=== PATIENT | female | born 1950 | race Caucasian/White ===

== ENCOUNTER 2016-05-21 09:20 | Day surgery (SDC) | payer MEDICARE ==
[2016-05-21] MEDS ORDERED: LACTATED RINGERS 1,000 ML IV ONE (09:40)
[2016-05-21] MEDS ORDERED: fentaNYL 250 MCG/5 ML VIAL IVP ONE (11:17)
[2016-05-21] MEDS ORDERED: MIDAZOLAM 2 MG/2 ML VIAL IVP ONE (11:17)
== END 2016-05-21 09:21 | disposition home or self-care (01) ==
PROC: 0DBL8ZX Excision of Transverse Colon, Via Natural or Artificial Opening Endoscopic, Diagnostic (ICD-10-PCS; 2016-05-21)
PROC: 0DBH8ZX Excision of Cecum, Via Natural or Artificial Opening Endoscopic, Diagnostic (ICD-10-PCS; principal; 2016-05-21 10:15)
DX: Z12.11 Encounter for screening for malignant neoplasm of colon (principal); D12.0 Benign neoplasm of cecum; D12.3 Benign neoplasm of transverse colon; I10 Essential (primary) hypertension; Z87.891 Personal history of nicotine dependence; Q27.33 Arteriovenous malformation of digestive system vessel; K57.30 Diverticulosis of large intestine without perforation or abscess without bleeding
CPT/HCPCS: 45380; 45384; J3010; J7120

== ENCOUNTER 2016-12-02 10:27 | Outpatient (CLI) | payer MEDICARE ==
--- NOTE | 2016-12-03 15:07 | Mammography Report ---
DIGITAL SCREENING MAMMOGRAM: 12/02/2016 CLINICAL INDICATION: A 66-year-old with history of late childbearing, personal history of left breas t cancer status post lumpectomy and chemoradiation. COMPARISON: 09/2015, 11/2013, 01/2011, 04/2008, 04/2007. TECHNIQUE: Routine CC and MLO projections were obtained of the breasts. FINDINGS: The breasts again demonstrate scattered fibroglandular densities bilaterally. Postoperati ve and posttreatment changes in the left breast are stable. Coarse, typically benign calcifications are present. No suspicious masses, clustered microcalcifications, or regions of architectural distor tion are identified. IMPRESSION: BENIGN FINDINGS. RECOMMENDATION: Routine annual screening unless otherwise clinically indicated. BI-RADS category 2, benign findings. STANDARD QUALIFYING STATEMENTS 1. This examination was reviewed with the aid of Computer-Aided Detection (CAD). 2. A negative or benign imaging report should not delay biopsy if clinically suspicious findings are present. Consider surgical consultation if warranted. More than 5% of cancers are not identified by i maging. 3. Dense breasts may obscure an underlying neoplasm. JOB #: [id number] EXT JOB #:[id number]
== END 2016-12-02 10:28 | disposition home or self-care (01) ==
LOC: DI 10:27
PROVIDERS: ATTEND Internal Medicine
DX: Z12.31 Encounter for screening mammogram for malignant neoplasm of breast (principal); Z85.3 Personal history of malignant neoplasm of breast
CPT/HCPCS: 77067

== ENCOUNTER 2019-02-16 11:09 | Outpatient (CLI) | payer MEDICARE ==
--- NOTE | 2019-02-17 08:55 | Mammography Report ---
Reason: SCREENING MAMMO Procedure Date: 02/16/2019 Accession Number: [id number] / [id number] Procedure: JARED - Screening Mammo w/Anatoliy CPT Code: Final Report FULL RESULT: EXAM: Screening Mammo w/Anatoliy DATE: 02/16/2019 11:36 AM CLINICAL HISTORY: Screening encounter. History of late childbearing. Personal history of left breast cancer status post lumpectomy in 1994. TECHNIQUE: (B) - Bilateral CC and MLO views were obtained. COMPARISON: 12/02/2016 through 02/25/2011. PARENCHYMAL PATTERN: (A) - The breast(s) demonstrate(s) scattered fibroglandular densities. FINDINGS: Postlumpectomy changes in the left breast demonstrate no suspicious interval change, typically benign. There are no suspicious masses, calcifications, or areas of distortion. IMPRESSION: Benign findings. BI-RADS category 2. RECOMMENDATION: (ANNUAL) - Recommend routine annual screening mammography. BI-RADS CATEGORY: (2) - Benign Findings. STANDARD QUALIFYING STATEMENTS: 1. This examination was not reviewed with the aid of Computer-Aided Detection (CAD). 2. A negative or benign imaging report should not preclude biopsy if clinically suspicious findings are present. 3. Dense breasts may obscure an underlying neoplasm. 4. This examination was reviewed with the aid of 3D breast imaging (tomosynthesis).
== END 2019-02-16 11:10 | disposition home or self-care (01) ==
LOC: DI 11:09
DX: Z12.31 Encounter for screening mammogram for malignant neoplasm of breast (principal); Z85.3 Personal history of malignant neoplasm of breast
CPT/HCPCS: 77063; 77067

== ENCOUNTER 2019-10-10 10:59 | Outpatient (CLI) | payer MEDICARE ==
--- NOTE | 2019-10-10 12:37 | DEXA Report ---
Reason: OTHER SPECIFIED DISORDERS OF BONE DENSITY STRUCTUR Procedure Date: 10/10/2019 Accession Number: [id number] / [id number] Procedure: DEX - Dexa Spine and/or Hip CPT Code: Final Report FULL RESULT: PROCEDURE: Dexa Spine and/or Hip INDICATIONS: OTHER SPECIFIED DISORDERS OF BONE DENSITY STRUCTUR TECHNIQUE: Dual energy x-ray absorptiometry (DXA) was performed on a [employer] System. Regions measured are the AP Spine, femoral neck, and if needed forearm. COMPARISON: 12/20/2015. FINDINGS: Lumbar Spine: Bone Mineral Density 1.335 g/cm/cm,T score 1.3. Total left Hip: Bone Mineral Density 1.012 g/cm/cm,T score 0.0. Left Femoral Neck: Bone Mineral Density 0.938 g/cm/cm, T score -0.7. (T score greater or equal to -1.0: NORMAL) (T score from -1.1 to -2.4: OSTEOPENIA) (T score less than or equal to -2.5 to: OSTEOPOROSIS) Impression: Normal bone mineral density. Patients with diagnosis of osteoporosis or osteopenia should have regular bone mineral density assessment. For those eligible for Medicare, routine testing is allowed once every 2 years. Testing frequency can be increased for patients who have rapidly progressing disease or for those who are receiving medical therapy to restore bone mass. Reviewed by: Tyrel Anand MD on 10/10/2019 12:36 PM PDT Approved by: Tyrel Anand MD on 10/10/2019 12:36 PM PDT Station ID: [id number]
== END 2019-10-10 11:00 | disposition home or self-care (01) ==
LOC: DI 10:59
PROVIDERS: ATTEND Family Medicine
DX: M85.80 Other specified disorders of bone density and structure, unspecified site (principal)
CPT/HCPCS: 77080

== ENCOUNTER 2020-07-25 11:02 | Outpatient (CLI) | payer MEDICARE ==
--- NOTE | 2020-07-26 09:41 | Mammography Report ---
BILATERAL DIGITAL SCREENING MAMMOGRAM 3D/2D: 07/25/2020 CLINICAL: Routine screening. Personal history of left breast cancer. Comparison is made to exams dated: 02/16/2019 mammogram, 12/02/2016 mammogram, and 10/09/2015 mammogram - [facility]. There are scattered fibroglandular elements in both breasts. There are benign post operative findings in the left breast. No significant masses, calcifications, or other findings are seen in either breast. There has been no significant interval change. IMPRESSION: BENIGN There is no mammographic evidence of malignancy. A 1 year screening mammogram is recommended. This exam was interpreted at Station ID: [id number]. NOTE: For mammograms, a report in lay terms will be sent to the patient. Approximately 15% of breast malignancies will not be visualized mammographically. In the management of a palpable breast mass, a negative mammogram must not discourage biopsy of a clinically suspicious lesion. Electronically Signed By: Zev queen/carmela:07/25/2020 12:23:44 ACR BI-RADS Category 2: Benign Finding(s) 3342F PARENCHYMAL PATTERN: (A) - The breast(s) demonstrate(s) scattered fibroglandular densities. BI-RADS CATEGORY: (2) - 2 RECOMMENDATION: (ANNUAL) - Recommend routine annual screening mammography. [id number] 1 year screening LATERALITY: (B)
== END 2020-07-25 11:03 | disposition home or self-care (01) ==
LOC: DI 11:02
PROVIDERS: ATTEND Internal Medicine
DX: Z12.31 Encounter for screening mammogram for malignant neoplasm of breast (principal); Z08 Encounter for follow-up examination after completed treatment for malignant neoplasm; Z85.3 Personal history of malignant neoplasm of breast

== ENCOUNTER 2022-09-21 12:20 | Outpatient (CLI) | payer MEDICARE ==
--- NOTE | 2022-09-21 16:32 | Ultrasound Report ---
PROCEDURE: Abdomen Complete INDICATIONS: ABD PAIN TECHNIQUE: Real-time scanning was performed of the abdominal and retroperitoneal organs, with image documentatio n. COMPARISON: None. FINDINGS: Liver: Liver is normal in size and homogeneous in echotexture. Gallbladder: Surgically absent Biliary ducts: Intrahepatic bile ducts are non-dilated. Extrahepatic bile duct caliber measures 9 m m. Normal is 6-7 mm or less in diameter, or 10 mm or less post-cholecystectomy. Pancreas: Pancreas is not well seen but is within normal limits as visualized. Spleen: Spleen is normal in size and homogeneous in echotexture. Kidneys: Kidneys are normal in size and echotexture. Right kidney measures 13.7 cm long; left kidne y measures 12.0 cm long. No hydronephrosis or nephrolithiasis. No solid masses. No complex renal cy stic lesions which require follow-up. 10.6 x 11.6 x 10.5 cm right renal cyst. Multiple left renal cys ts, largest of which measures 34 mm. Aorta: Visualized aorta is normal in caliber at less than 3 cm. Iliacs: Proximal common iliac arteries are normal in caliber at less than 2.5 cm. IVC: Intrahepatic inferior vena cava is patent. Miscellaneous: No free abdominal fluid. IMPRESSION: 1. No acute process. Reviewed by: Tania Gao MD on 09/21/2022 4:30 PM PDT Approved by: Tania Gao MD on 09/21/2022 4:30 PM PDT Station ID: [id number]
== END 2022-09-21 12:21 | disposition home or self-care (01) ==
LOC: DI 12:20
PROVIDERS: ATTEND Internal Medicine
DX: R10.9 Unspecified abdominal pain (principal)

== ENCOUNTER 2022-11-28 08:00 | Outpatient (CLI) | payer MEDICARE | END 2022-11-28 23:59 | disposition home or self-care (01) | LOC: LAB.N 08:00 | PROVIDERS: ATTEND Physician Assistant Medical | DX: N30.00 Acute cystitis without hematuria (principal) | CPT/HCPCS: 87077; 87086; 87181 ==

== ENCOUNTER 2023-02-11 11:21 | Outpatient (CLI) | payer MEDICARE ==
--- NOTE | 2023-02-12 13:10 | Mammography Report ---
BILATERAL DIGITAL SCREENING MAMMOGRAM 3D/2D: 02/11/2023 CLINICAL: Routine screening. Personal history of left breast cancer. Comparison is made to exams dated: 07/25/2020 mammogram, 02/16/2019 mammogram, 12/02/2016 mammogram, mammogram, 12/18/2013 mammogram, and 02/25/2011 mammogram - [facility]. There are scattered areas of fibroglandular density in both breasts (category b / 25%-50% glandular t issue). The left breast has post-operative findings. There is an asymmetry in the right breast anterior depth lateral region seen on the craniocaudal view only. This is more prominent. No other significant masses, calcifications, or other findings are seen in either breast. IMPRESSION: INCOMPLETE: NEEDS ADDITIONAL IMAGING EVALUATION The asymmetry in the right breast is indeterminate. Additional views with possible ultrasound are re commended. This exam was interpreted at Station ID: [id number]. NOTE: For mammograms, a report in lay terms will be sent to the patient. Approximately 15% of breast malignancies will not be visualized mammographically. In the management of a palpable breast mass, a negative mammogram must not discourage biopsy of a clinically suspicious lesion. Electronically Signed By: Edy Nieto M.D. lc/:02/11/2023 15:34:00 ACR BI-RADS Category 0: Incomplete 3340F PARENCHYMAL PATTERN: (A) - The breast(s) demonstrate(s) scattered fibroglandular densities. BI-RADS CATEGORY: (0) - 0 Mammo and [place] [id number] Immediate follow-up LATERALITY: (B)
== END 2023-02-11 11:22 | disposition home or self-care (01) ==
LOC: DI.N 11:21
PROVIDERS: ATTEND Internal Medicine
DX: Z12.31 Encounter for screening mammogram for malignant neoplasm of breast (principal); Z85.3 Personal history of malignant neoplasm of breast; R92.323 Mammographic fibroglandular density, bilateral breasts; R92.8 Other abnormal and inconclusive findings on diagnostic imaging of breast

== ENCOUNTER 2023-03-09 10:26 | Outpatient (CLI) | payer MEDICARE ==
--- NOTE | 2023-03-10 12:23 | Mammography Report ---
UNILATERAL RIGHT DIGITAL DIAGNOSTIC MAMMOGRAM 3D/2D WITH LATEROMEDIAL SPOT COMPRESSION: 03/09/2023 CLINICAL: Patient returns today to evaluate a focal asymmetry in the right breast. Comparison is made to exams dated: 02/11/2023 mammogram, 07/25/2020 mammogram, 02/16/2019 mammogram, 12/02/2016 mammogram, 10/09/2015 mammogram, and 12/18/2013 mammogram - [facility]. There are scattered areas of fibroglandular density in the right breast (category b / 25%-50% glandul ar tissue). There is a 6 mm oval equal density asymmetry with an indistinct margin in the right breast anterior d epth 10:00 position. This is seen in additional views. This is more prominent. There are two simil ar asymmetries in the 9:00 position similar depth which may be lymph nodes. No other significant masses or calcifications are seen in the breast. IMPRESSION: INCOMPLETE: NEEDS ADDITIONAL IMAGING EVALUATION The 6 mm asymmetry in the right breast anterior depth 10:00 has developed over recent years and remai ns indetetminate. An ultrasound is recommended. This was performed immediately following this exam. This exam was interpreted at Station ID: [id number]. NOTE: For mammograms, a report in lay terms will be sent to the patient. Approximately 15% of breast malignancies will not be visualized mammographically. In the management of a palpable breast mass, a negative mammogram must not discourage biopsy of a clinically suspicious lesion. Electronically Signed By: Pratima leone/:03/09/2023 11:25:09 ACR BI-RADS Category 0: Incomplete 3340F PARENCHYMAL PATTERN: (A) - The breast(s) demonstrate(s) scattered fibroglandular densities. BI-RADS CATEGORY: (0) - 0 Ultrasound [id number] Immediate follow-up LATERALITY: (B)
--- NOTE | 2023-03-10 12:23 | Ultrasound Report ---
LIMITED ULTRASOUND OF RIGHT BREAST: 03/09/2023 CLINICAL: Patient returns today to evaluate a focal asymmetry in the right breast. Comparison is made to exams dated: 03/09/2023 mammogram, 02/11/2023 mammogram, 07/25/2020 mammogram, 02/16/2019 mammogram, 12/02/2016 mammogram, and 10/09/2015 mammogram - [facility]. Color flow ultrasound of the right breast 10 o'clock region was performed. Xiong scale images of the real-time examination were reviewed. There is a cluster of benign oval small lymph nodes in the right breast 10:00 7 cm from the nipple co rresponding to the mammographic findings. The most prominent measures up to 0.6 cm, consistent with t he mammogram. These oval normal lymph nodes display fatty gavin. Color flow imaging demonstrates that there is an adjacent vascularity. IMPRESSION: BENIGN A cluster of normal small lymph nodes in the right breast corresponds to the mammogram finding, and i s benign. Return to annual mammogram screening schedule is recommended. Findings and recommendations were conveyed to the patient at time of exam. This exam was interpreted at Station ID: [id number]. Electronically Signed By: Pratima leone/:03/09/2023 11:53:27 letter sent: No_Letter Ultrasound BI-RADS: 2 Benign BI-RADS CATEGORY: (2) - 2 Mammogram [id number] return to screening LATERALITY: (B)
== END 2023-03-09 10:27 | disposition home or self-care (01) ==
LOC: DI 10:26
PROVIDERS: ATTEND Internal Medicine
DX: R92.8 Other abnormal and inconclusive findings on diagnostic imaging of breast (principal)

== ENCOUNTER 2023-04-22 10:40 | Outpatient (CLI) | payer MEDICARE ==
--- NOTE | 2023-04-22 12:40 | DEXA Report ---
PROCEDURE: Dexa Spine and/or Hip INDICATIONS: OSTEOPENIA TECHNIQUE: Dual energy x-ray absorptiometry (DXA) was performed on a [employer] System. Regions measur ed are the AP Spine, femoral neck, and if needed forearm. COMPARISON: DEXA scan on October 10, 2019 FINDINGS: Lumbar Spine: Bone Mineral Density 1.352 g/cm/cm,T score 1.4. There has been no statistically significant change i n bone mineral density since the prior study. Left Femoral Neck: Bone Mineral Density 0.859 g/cm/cm, T score -1.3. Left Hip: Bone Mineral Density 0.982 g/cm/cm,T score -0.2. Since the most recent prior study, there has been a statistically significant decrease in bone mineral density by 3 percent. (T score greater or equal to -1.0: NORMAL) (T score from -1.1 to -2.4: OSTEOPENIA) (T score less than or equal to -2.5 to: OSTEOPOROSIS) Impression: By WHO criteria, this patient has normal bone density. No statistical interval change in bone mineral density of the lumbar spine. Interval statistical decr ease in bone mineral density of the hip. Patients with diagnosis of osteoporosis or osteopenia should have regular bone mineral density assess ment. For those eligible for Medicare, routine testing is allowed once every 2 years. Testing frequ ency can be increased for patients who have rapidly progressing disease or for those who are receivin g medical therapy to restore bone mass. Reviewed by: Candice Galaviz MD on 04/22/2023 12:39 PM PST Approved by: Candice Galaviz MD on 04/22/2023 12:39 PM PST Station ID: [id number]
== END 2023-04-22 10:41 | disposition home or self-care (01) ==
LOC: DI 10:40
PROVIDERS: ATTEND Internal Medicine
DX: M85.88 Other specified disorders of bone density and structure, other site (principal)